=== PATIENT | male | born 1990 | race African-American/Black ===

== ENCOUNTER → 2016-09-27 | Outpatient (CLI) | payer BC, OTHER | LOC: SPEECH 11:53 → RAD 11:53 | DX: R47.02 Dysphasia (principal) ==

== ENCOUNTER → 2017-01-31 | Outpatient (CLI) | payer OTHER | LOC: RAD 14:30 | DX: M54.2 Cervicalgia (principal) ==

== ENCOUNTER → 2018-07-23 | Outpatient (CLI) | payer OTHER | LOC: RAD 16:36 | DX: M54.2 Cervicalgia (principal) ==